=== PATIENT | female | born 1990 | race Caucasian/White ===

== ENCOUNTER 2017-09-05 18:56 | Emergency (ER) | payer OTHER ==
[~2017-09-05] VITALS: Ht 172.7 cm; Wt 121.7 kg
--- NOTE | ~2017-09-05 | EKG ---
[address] [place] [address] ELECTROCARDIOGRAM REPORT Name: BASILIAMILDREDEDWARDO FERNANDO Room #: [facility] [id number] Admission: 09/05/17 Attend Phys: Discharge: 09/05/17 Date of : 89 Report #: [id number] THIS REPORT FOR: //name// [facility] ED Test Date: 2017-09-05 Test Time: 19:03:11 Pat Name: EDWARDO FROST Department: Room: Gender: F Radio Message Router: 99 : 1990 Requested By: Ruddy Zafar Order Number: [id number] MD: Jesus Bennett Measurements Intervals [place] Rate: 68 P: 11 LA: 146 QRS: 45 QRSD: 96 T: 33 QT: 389 QTc: 414 Interpretive Statements Sinus rhythm Normal tracing No previous ECG available for comparison Electronically Signed On 09-06-2017 8:56:37 MULCHER OPERATOR by Jesus Bennett [email or web address] <ELECTRONICALLY SIGNED> By: Jesus Bennett MD, [facility] 09/06/17 [id number] Jesus Bennett MD, FACC /EPI
[2017-09-05] MEDS ORDERED: NEXPLANON68 MG SUBQ (19:17)
[2017-09-05] MEDS ORDERED: COZAAR 50 MG TA50 M2 PO (19:18)
[2017-09-05] MEDS ORDERED: SINGULAIR 10 MG10 M1 PO (19:18)
[2017-09-05] MEDS ORDERED: ZYRTEC10 M4 PO (19:18)
[2017-09-05] MEDS ORDERED: ZOLOFT100 MG PO (19:18)
[2017-09-05] MEDS ORDERED: VENTOLIN HFA 1818 GM INH (19:19)
[2017-09-05] MEDS ORDERED: ONDANSETRON HCL4 M2 PO (19:19)
[2017-09-05] MEDS ORDERED: VITAMINC500 PO (19:19)
[2017-09-05] MEDS ORDERED: MAXALT MLT ODT10 M1 PO (19:19)
[2017-09-05 19:55] LABS: EOSINOPHILS 0.7 % (0.0-3.0); HEMATOCRIT 40.5 % (37.0-47.0); HEMOGLOBIN 13.4 gm/dL (12.0-15.0); LYMPHOCYTES 23.5 % (24.0-44.0); MCH 29.1 pg (26.0-34.0); MCHC 33.1 g/dL (28.0-37.0); MCV 87.8 fL (80.0-100.0); MONOCYTES 8.2 % (1.0-8.0); PLATELET COUNT 343 thou/uL (150-400); POLYS 66.6 % (36.0-66.0); RBC 4.61 mil/uL (4.20-5.00); RDW 13.8 % (10.5-14.5)
[2017-09-05 20:06] LABS: ANION GAP 8 mmol/L (7-16); BUN 17 mg/dL (7-18); CHLORIDE 103 mmol/L (98-107); CO2 29 mmol/L (21-32); CREATININE 0.8 mg/dL (0.6-1.0); GLUCOSE 92 mg/dL (74-106); POTASSIUM 3.5 mmol/L (3.5-5.1); SODIUM 140 mmol/L (136-145)
[2017-09-05 20:15] LABS: TROPONIN-I < 0.04 ng/mL (<0.06)
[2017-09-05] MEDS ORDERED: ZOFRAN ODT4 M1 PO (20:32)
== END 2017-09-05 20:59 | disposition home or self-care (01) ==
LOC: ER 18:56
PROVIDERS: Physician Assistant
DX: R07.89 Other chest pain (principal); T39.1X5A Adverse effect of 4-Aminophenol derivatives, initial encounter; Y92.9 Unspecified place or not applicable; Z88.2 Allergy status to sulfonamides; Z88.1 Allergy status to other antibiotic agents; Z88.0 Allergy status to penicillin